=== PATIENT | male | born 1970 | race Caucasian/White ===

== ENCOUNTER → 2016-10-03 | Outpatient (CLI) | payer OTHER ==
--- NOTE | 2016-10-03 18:09 | Diagnostic Imaging Report ---
INDICATION: Back pain. EXAMINATION: Thoracic spine. FINDINGS: AP and lateral views of the thoracic spine show normal vertebral body height and alignment. Disc spaces are well maintained. IMPRESSION: Negative thoracic spine. Dictated by: Dictated on workstation # [id number]
== END ==
LOC: RAD 15:57
PROVIDERS: ATTEND Family Medicine
DX: S29.019A Strain of muscle and tendon of unspecified wall of thorax, initial encounter (principal); X58.XXXA Exposure to other specified factors, initial encounter; Y99.8 Other external cause status
CPT/HCPCS: 72070

== ENCOUNTER 2018-09-06 13:33 | Emergency (ER) | payer OTHER ==
[~2018-09-06] VITALS: Ht 193 cm; Wt 117.9 kg
--- NOTE | 2018-09-06 13:37 | NUR ---
ATTEMPTED TO CALL PATIENT BACK TO ROOM AND PATIENT WAS NOT IN WAITING ROOM.
[2018-09-06] MEDS ORDERED: LISI10TA2 PO (13:55)
[2018-09-06 14:30] LABS: BASOPHILS # (AUTO) 0.1 10^3/uL (0.0-0.1); BASOPHILS % (AUTO) 0 % (0-10); EOSINOPHILS # (AUTO) 0.2 10^3/uL (0.0-0.3); EOSINOPHILS % (AUTO) 1 % (0-10); HEMATOCRIT 40 % (40-54); LYMPHOCYTES # (AUTO) 1.9 X 10^3 (1.0-4.0); LYMPHOCYTES % (AUTO) 14 % (12-44); MEAN CORPUSCULAR HEMOGLOBIN 32 PG (25-34); MEAN CORPUSCULAR HGB CONC 35 G/DL (32-36); MEAN CORPUSCULAR VOLUME 92 FL (80-99); MEAN PLATELET VOLUME 10.5 FL (7.4-10.4); MONOCYTES # (AUTO) 0.7 X 10^3 (0.0-1.0); MONOCYTES % (AUTO) 5 % (0-12); NEUTROPHILS # (AUTO) 11.2 X 10^3 (1.8-7.8); NEUTROPHILS % (AUTO) 80 % (42-75); PLATELET COUNT 305 10^3/uL (130-400); RED CELL DISTRIBUTION WIDTH 12.6 % (10.0-14.5)
[2018-09-06] MEDS ORDERED: RECEIVED CONTRAST 20 ML VIAL IV SCH (14:30)
[2018-09-06] MEDS ORDERED: NS 100 ML (IVPB) BAG IV ONE (14:30)
[2018-09-06] MEDS ORDERED: IOHEXOL 350 MG/ML 100 ML (OMNIPAQUE 350) VIAL IV ONE (14:30)
[2018-09-06 14:47] LABS: ALANINE AMINOTRANSFERASE 28 U/L (0-55); ALBUMIN 4.6 GM/DL (3.2-4.5); ALKALINE PHOSPHATASE 58 U/L (40-136); AMYLASE 61 U/L (25-125); BILIRUBIN,TOTAL 0.3 MG/DL (0.1-1.0); BUN/CREATININE RATIO 10; CALCIUM 10.1 MG/DL (8.5-10.1); CARBON DIOXIDE 23 MMOL/L (21-32); CHLORIDE 102 MMOL/L (98-107); CREATININE SERUM 0.94 MG/DL (0.60-1.30); GFR ESTIMATED > 60; GLUCOSE 129 MG/DL (70-105); LIPASE 48 U/L (8-78); POTASSIUM 3.9 MMOL/L (3.6-5.0); SODIUM 136 MMOL/L (135-145)
[2018-09-06 15:06] LABS: BAND NEUTROPHILS 2 %; BASOPHILS % (MANUAL) 0 %; EOSINOPHILS % (MANUAL) 3 %; LYMPHOCYTES % (MANUAL) 10 %; MONOCYTES % (MANUAL) 3 %; NEUTROPHILS % (MANUAL) 82 %; RBC MORPH NORMAL
--- NOTE | 2018-09-06 15:30 | NUR ---
PATIENT VOIDED AND URINE COLLECTED BY ALL [facility].
--- NOTE | 2018-09-06 15:32 | ED Abdominal Pain ---
General Chief Complaint: Abdominal/GI Problems Stated Complaint: ABD PAIN Nursing Triage Note: PATIENT AMBULATORY TO ER WITH COMPLAINT OF LEFT LOWER QUADRANT PAIN SINCE THURSDAY. PATIENT ALSO COMPLAINS OF DIARRHEA SINCE THURSDAY. PATIENT DESCRIBES THE PAIN A CRAMPING PAIN. HE HAS A HISTORY OF DIVERTICULITIS IN THE PAST. Sepsis Screen: No Definite Risk Source of Information: Patient Exam Limitations: No Limitations History of Present Illness Date Seen by Provider: Sep 06, 2018 Time Seen by Provider: 14:20 Initial Comments 48-year-old male who presents to the emergency room with complaints of left lower abdominal pain, cramping, and diarrhea that started Thursday 2 days ago. He denies vomiting, blood in stools, or fevers. States that he has history of diverticulitis in the past. Timing/Duration: 1-2 Days Severity/Quality: Cramping Location: LLQ, Periumbilical Radiation: No Radiation Associated Symptoms: No Fever/Chills, No Nausea/Vomiting Allergies and Home Medications Allergies Coded Allergies: No Known Drug Allergies (Unverified , 09/06/18) Home Medications Amoxicillin/Potassium Clav 1 Each Tablet, 1 EACH PO BID Prescribed by: MIGUEL GASTON on 09/06/18 1603 Hydrocodone Bit/Acetaminophen 1 Tab Tab, 1 EACH PO Q4-6HR PRN for PAIN-MODERATE Prescribed by: MIGUEL GASTON on 09/06/18 1603 Lisinopril 10 Mg Tablet, 10 MG PO DAILY, (Reported) Patient Home Medication List Home Medication List Reviewed: Yes Review of Systems Review of Systems Constitutional: see HPI; No chills, No fever Gastrointestinal: See HPI, Abdominal Pain, Diarrhea All Other Systems Reviewed Negative Unless Noted: Yes Past Lcsdyit-Xrccsv-Yuungm Hx Past Med/Social Hx: Reviewed Nursing Past Med/Soc Hx Patient Social History Alcohol Use: Occasionally Uses Alcohol Beverage of Choice: Beer Recreational Drug Use: No Smoking Status: Former Smoker Type Used: Cigars Former Smoker, Quit: Sep 26, 2018 Recent Foreign Travel: No Contact w/Someone Who Travel: No Recent Infectious Disease Expo: No Recent Hopitalizations: No Physical Abuse: No Sexual Abuse: No Mistreated: No Fear: No Seasonal Allergies Seasonal Allergies: No Past Medical History Surgeries: Yes (COLONOSCOPY) Respiratory: No Cardiac: Yes Hypertension Neurological: No Genitourinary: No Gastrointestinal: Yes Diverticulosis Musculoskeletal: No Endocrine: No HEENT: No Cancer: No Psychosocial: No Integumentary: No Blood Disorders: No Family Medical History Reviewed Nursing Family Hx Physical Exam Vital Signs Vital Signs - First Documented 09/06/18 09/06/18 13:39 17:12 Temp 98.1 Pulse 110 Resp 16 B/P (MAP) 132/92 (105) Pulse Ox 96 O2 Delivery Room Air Capillary Refill : Less Than 3 Seconds Height/Weight/BMI Height: 6'4.00" Weight: 260lbs. oz. 117.586110dd; BMI Method:Stated General Appearance: WD/WN, no apparent distress Respiratory: chest non-tender, lungs clear, normal breath sounds, no respiratory distress, no accessory muscle use Cardiovascular: normal peripheral pulses, regular rate, rhythm, no edema, no gallop, no JVD, no murmur Gastrointestinal: normal bowel sounds (hyperactive), soft, no organomegaly, no pulsatile mass, tenderness (left lower quadrant tenderness) Extremities: normal capillary refill Neurologic/Psychiatric: alert, normal mood/affect, oriented x 3 Skin: normal color, warm/dry Progress/Results/Core Measures Results/Orders Lab Results Laboratory Tests Test 09/06/18 14:07 09/06/18 15:27 Range/Units White Blood Count 14.0 H 4.3-11.0 10^3/uL Red Blood Count 4.38 4.35-5.85 10^6/uL Hemoglobin 14.0 13.3-17.7 G/DL Hematocrit 40 40-54 % Mean Corpuscular Volume 92 80-99 FL Mean Corpuscular Hemoglobin 32 25-34 PG Mean Corpuscular Hemoglobin Concent 35 32-36 G/DL Red Cell Distribution Width 12.6 10.0-14.5 % Platelet Count 305 130-400 10^3/uL Mean Platelet Volume 10.5 H 7.4-10.4 FL Neutrophils (%) (Auto) 80 H 42-75 % Lymphocytes (%) (Auto) 14 12-44 % Monocytes (%) (Auto) 5 0-12 % Eosinophils (%) (Auto) 1 0-10 % Basophils (%) (Auto) 0 0-10 % Neutrophils # (Auto) 11.2 H 1.8-7.8 X 10^3 Lymphocytes # (Auto) 1.9 1.0-4.0 X 10^3 Monocytes # (Auto) 0.7 0.0-1.0 X 10^3 Eosinophils # (Auto) 0.2 0.0-0.3 10^3/uL Basophils # (Auto) 0.1 0.0-0.1 10^3/uL Neutrophils % (Manual) 82 % Lymphocytes % (Manual) 10 % Monocytes % (Manual) 3 % Eosinophils % (Manual) 3 % Basophils % (Manual) 0 % Band Neutrophils 2 % Blood Morphology Comment NORMAL Sodium Level 136 135-145 MMOL/L Potassium Level 3.9 3.6-5.0 MMOL/L Chloride Level 102 98-107 MMOL/L Carbon Dioxide Level 23 21-32 MMOL/L Anion Gap 11 5-14 MMOL/L Blood Urea Nitrogen 9 7-18 MG/DL Creatinine 0.94 0.60-1.30 MG/DL Estimat Glomerular Filtration Rate > 60 BUN/Creatinine Ratio 10 Glucose Level 129 H 70-105 MG/DL Calcium Level 10.1 8.5-10.1 MG/DL Corrected Calcium 8.5-10.1 MG/DL Total Bilirubin 0.3 0.1-1.0 MG/DL Aspartate Amino Transf (AST/SGOT) 24 5-34 U/L Alanine Aminotransferase (ALT/SGPT) 28 0-55 U/L Alkaline Phosphatase 58 40-136 U/L Total Protein 8.0 6.4-8.2 GM/DL Albumin 4.6 H 3.2-4.5 GM/DL Amylase Level 61 25-125 U/L Lipase 48 8-78 U/L Urine Color YELLOW Urine Clarity CLEAR Urine pH 5 5-9 Urine Specific [place] 1.015 L 1.016-1.022 Urine Protein NEGATIVE NEGATIVE Urine Glucose (UA) NEGATIVE NEGATIVE Urine Ketones NEGATIVE NEGATIVE Urine Nitrite NEGATIVE NEGATIVE Urine Bilirubin NEGATIVE NEGATIVE Urine Urobilinogen NORMAL NORMAL MG/DL Urine Leukocyte Esterase NEGATIVE NEGATIVE Urine RBC (Auto) NEGATIVE NEGATIVE Urine RBC NONE /HPF Urine WBC RARE /HPF Urine Squamous Epithelial Cells NONE /HPF Urine Crystals NONE /LPF Urine Bacteria NEGATIVE /HPF Urine Casts NONE /LPF Urine Mucus NEGATIVE /LPF Urine Culture Indicated NO My Orders Orders - MIGUEL GASTON Comprehensive Metabolic Panel (09/06/18 14:24) Lipase (09/06/18 14:24) Amylase (09/06/18 14:24) Ua Culture If Indicated (09/06/18 14:24) Saline Lock/Iv-Start (09/06/18 14:24) Cbc With Automated Diff (09/06/18 14:24) Ct Abdomen/Pelvis W (09/06/18 14:24) Iohexol Injection (Omnipaque 350 Mg/Ml 1 (09/06/18 14:30) Received Contrast (Contrast Received) (09/06/18 14:30) Ns (Ivpb) (Sodium Chloride 0.9% Ivpb Bag (09/06/18 14:30) Manual Differential (09/06/18 14:07) Fentanyl Injection (Sublimaze Injection (09/06/18 16:00) Ns Iv 1000 Ml (Sodium Chloride 0.9%) (09/06/18 16:00) Medications Given in ED Current Medications Medications Dose Ordered Sig/Nagi Route Start Time Stop Time Status Last Admin Dose Admin Fentanyl Citrate 50 mcg ONCE ONCE IVP 09/06/18 16:00 09/06/18 16:01 DC 09/06/18 16:27 50 MCG Iohexol 100 ml ONCE ONCE IV 09/06/18 14:30 09/06/18 14:35 DC 09/06/18 15:08 100 ML Sodium Chloride 100 ml ONCE ONCE IV 09/06/18 14:30 09/06/18 14:35 DC 09/06/18 15:08 80 ML Vital Signs/I&O 09/06/18 09/06/18 13:39 17:12 Temp 98.1 98.5 Pulse 110 89 Resp 16 18 B/P (MAP) 132/92 (105) 122/83 (96) Pulse Ox 96 O2 Delivery Room Air Room Air Blood Pressure Mean: 105 Progress Progress Note : Time: 15:49 Progress Note I have seen and evaluated the patient. I have informed him of his laboratory and imaging studies. He reports that with his diverticulitis in the past they have prescribed him Augmentin and has worked well. We will try this as an outpatient treatment. He agrees with plan of care, plans for discharge, strict return precautions were given. Diagnostic Imaging Diagonstic Imaging: CT Plain Films/CT/US/NM/MRI: abdomen, pelvis Comments NAME: [facility]GER[facility]D [facility] REC#: [id number] PT STATUS: REG ER : 1970 PHYSICIAN: MIGUEL GASTON ADMIT DATE: 09/06/18/ER Signed Date of Exam: 09/06/18 CT ABDOMEN/PELVIS W PROCEDURE: CT abdomen and pelvis with contrast. TECHNIQUE: Multiple contiguous axial images were obtained through the abdomen and pelvis after administration of intravenous contrast. INDICATION: Left lower quadrant pain and diarrhea. No prior studies are available for comparison. Lung bases are clear. Liver demonstrates generalized low density consistent with hepatic steatosis. No discrete liver mass is seen. Gallbladder is contracted. No biliary duct dilatation is identified. The pancreas and spleen are unremarkable. No adrenal mass is identified. A right kidney does contain a 4 cm low-density mass in the mid region suggestive of a cyst. Left kidney is unremarkable. Aorta is non-aneurysmal. Multiple shotty lymph nodes in the central retroperitoneum are noted, nonspecific. No definite mesenteric lymphadenopathy is identified. Imaging to the pelvis does show a long segment of significant wall thickening involving the sigmoid colon which does contain diverticuli. Surrounding inflammatory stranding is present and features are consistent with acute sigmoid diverticulitis. No abscess formation or bowel obstruction is identified. No free fluid is seen. Bladder is unremarkable. IMPRESSION: 1. Hepatic steatosis. 2. Findings consistent with acute sigmoid diverticulitis without evidence of abscess formation or bowel obstruction. Dictated by: Dictated on workstation # [id number] Dict: 09/06/18 1528 Trans: 09/06/18 1552 Interpreted by: SARINA LAW MD Electronically signed by: SARINA LAW MD 09/06/18 1552 Reviewed: Reviewed by Me Departure Impression Primary Impression: Sigmoid diverticulitis Disposition: 01 HOME, SELF-CARE Condition: Stable/Unchanged Departure-Patient Inst. Decision time for Depature: 15:49 Referrals: NO,LOCAL PHYSICIAN (PCP/Family) Primary Care Physician Patient Instructions: Diverticulitis (DC), LOCAL PHYSICIAN LIST Add. Discharge Instructions: Take medications as directed. Follow-up with a primary care provider in 2-3 days for a recheck. Clear liquid diet for the next 4-5 days and advance as tolerated. Return back to the emergency room for worsening symptoms, pain, fevers, or any other concerns as needed. All discharge instructions reviewed with patient and/or family. Voiced understanding. Scripts Amoxicillin/Potassium Clav (Augmentin 875-125 Tablet) 1 Each Tablet 1 EACH PO BID for 7 Days, #14 TAB Prov: MIGUEL GASTON 09/06/18 Hydrocodone Bit/Acetaminophen (Hydrocodone/Acetaminophen 5/325mg Tablet) 1 Tab Tab 1 EACH PO Q4-6HR PRN for PAIN-MODERATE MDD 10, #14 TAB Prov: MIGUEL GASTON 09/06/18 Work/School Note: Work Release Form Date Seen in the Emergency Department: Sep 06, 2018 Return to Work: Sep 09, 2018 Restrictions: No Restrictions MIGUEL GASTON Sep 06, 2018 15:32
--- NOTE | 2018-09-06 15:35 | Diagnostic Imaging Report ---
PROCEDURE: CT abdomen and pelvis with contrast. TECHNIQUE: Multiple contiguous axial images were obtained through the abdomen and pelvis after administration of intravenous contrast. INDICATION: Left lower quadrant pain and diarrhea. No prior studies are available for comparison. Lung bases are clear. Liver demonstrates generalized low density consistent with hepatic steatosis. No discrete liver mass is seen. Gallbladder is contracted. No biliary duct dilatation is identified. The pancreas and spleen are unremarkable. No adrenal mass is identified. A right kidney does contain a 4 cm low-density mass in the mid region suggestive of a cyst. Left kidney is unremarkable. Aorta is non-aneurysmal. Multiple shotty lymph nodes in the central retroperitoneum are noted, nonspecific. No definite mesenteric lymphadenopathy is identified. Imaging to the pelvis does show a long segment of significant wall thickening involving the sigmoid colon which does contain diverticuli. Surrounding inflammatory stranding is present and features are consistent with acute sigmoid diverticulitis. No abscess formation or bowel obstruction is identified. No free fluid is seen. Bladder is unremarkable. IMPRESSION: 1. Hepatic steatosis. 2. Findings consistent with acute sigmoid diverticulitis without evidence of abscess formation or bowel obstruction. Dictated by: Dictated on workstation # [id number]
[2018-09-06 15:45] LABS: BILIRUBIN,URINE NEGATIVE (NEGATIVE); CLARITY,URINE CLEAR; COLOR,URINE YELLOW; GLUCOSE, URINE (UA) NEGATIVE (NEGATIVE); KETONES,URINE NEGATIVE (NEGATIVE); LEUKOCYTE ESTERASE ,URINE NEGATIVE (NEGATIVE); NITRITE,URINE NEGATIVE (NEGATIVE); PH,URINE 5 (5-9); PROTEIN,URINE NEGATIVE (NEGATIVE); UROBILINOGEN,URINE NORMAL (NORMAL)
[2018-09-06] MEDS ORDERED: NS IV 1000 ML 1,000 ML IV SCH (16:00)
[2018-09-06] MEDS ORDERED: fentaNYL INJECTION 100 MCG/2 ML AMP IVP ONE (16:00)
[2018-09-06 16:03] LABS: BACTERIA,URINE NEGATIVE /HPF; WBC,URINE RARE /HPF
[2018-09-06] MEDS ORDERED: AMOX-358 PO (16:03)
[2018-09-06] MEDS ORDERED: ACHD5005 PO (16:03)
[2018-09-06 17:12] VITALS: BP 122/83
--- NOTE | 2018-09-06 17:14 | NUR ---
PATIENT CONSCIOUS, ALERT AND ORIENTED X 4 AT TIME OF DISCHARGE. VITAL SIGNS STABLE. PATIENT DENIES ANY PAIN. PATIENT GIVEN PRESCRIPTIONS FOR HYDROCODONE AND AUGMENTIN.
== END 2018-09-06 17:15 | disposition home or self-care (01) ==
LOC: EDUNIT# 13:33 → ER 13:33
DX: K57.32 Diverticulitis of large intestine without perforation or abscess without bleeding (principal); I10 Essential (primary) hypertension; Z87.19 Personal history of other diseases of the digestive system; Z87.891 Personal history of nicotine dependence
CPT/HCPCS: 36415; 74177; 80053; 81000; 82150; 83690; 85007; 85027

== ENCOUNTER → 2018-12-09 | Outpatient (REF) ==
[~2018-12-09] MED LIST: ACHD5005 PO; AMOX-358 PO; LISI10TA2 PO
--- NOTE | 2018-12-09 11:06 | Diagnostic Imaging Report ---
KNEE, RIGHT, 3 VIEWS COMPARISON: None available. INDICATION: Twisted right knee. TECHNIQUE: Non-weight bearing AP, oblique, and lateral views of the right knee. FINDINGS: No fracture or traumatic malalignment. The joint spaces are well maintained. Small knee joint effusion. IMPRESSION: 1. No acute osseous abnormality. 2. Small knee joint effusion could relate to internal derangement. Dictated by: Dictated on workstation # [id number]
== END | disposition home or self-care (01) ==
LOC: OCC 10:35
PROVIDERS: ATTEND Family Medicine
CPT/HCPCS: 73562

== ENCOUNTER 2020-01-06 22:35 | Emergency (ER) | payer OTHER ==
[~2020-01-06] VITALS: Ht 190.5 cm; Wt 108.9 kg
[2020-01-06] MEDS ORDERED: LACTATED RINGERS 1,000 ML IV ONE (23:14)
[2020-01-06] MEDS ORDERED: IBUPROFEN 800 MG (MOTRIN) TAB PO STA (23:14)
--- NOTE | 2020-01-06 23:14 | ED General ---
General Chief Complaint: General Problems/Pain Stated Complaint: FEVER/SOB/COUGH/POSS COVID EXPOSURE Nursing Triage Note: PT AMBULATES TO [facility] WITH C/O CP, SOA, FEVER, COUGH, MALAISE, FATIGUE, ET BODY ACHES. PT REPORTS S/S BEGAN ON THIS DAY. PT REPORTS TO HAVE TAKEN 1000MG TYLENOL AT APPROX 1500 ON THIS DAY D/T FEVER. PT REPORTS POSSIBLE EXPOSURE TO COVID-19. PT REPORTS INTERMITTENT L CHEST WALL DISCOMFORT. A&OX4. Nursing Sepsis Screen: Possible Severe Sepsis Risk Source of Information: Patient History of Present Illness Date Seen by Provider: Jan 06, 2020 Time Seen by Provider: 22:55 Initial Comments PT ARRIVES VIA POV STATES HE THINKS HE HAS BEEN EXPOSED TO COVID-19 AT WORK. 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 STATES HE BEGAN FEELING SICK TODAY CHECKED TEMP AT HOME THIS EVENING AND WAS 99.5. HAS BEEN AT WORK ALL DAY, THEN WENT TO BACK TO [facility] JUST TO CHECK HIS TEMP WITH THEIR THERMOMETER AND WAS 103 AND 104. STATES HE TOOK 2 TYLENOL AT 1600 TODAY C/O PRODUCTIVE COUGH--STATES HE HAS A CHRONIC SMOKER'S COUGH, BUT HAS GOTTEN WORSE THE LAST COUPLE OF DAYS, BUT HAS NOT BEEN PRODUCTIVE FOR THE LAST 3-4 DAYS C/O SHORTNESS OF BREATH C/O MILD LEFT UPPER CHEST DISCOMFORT C/O MID AND UPPER BACK PAIN C/O FATIGUE C/O BODY ACHES STATES HIS FINGERS FEEL TINGLY NO NAUSEA, VOMITING. BUT DID HAVE A LITTLE DIARRHEA TODAY NO ABDOMINAL PAIN HAS BEEN EATING AND DRINKING NORMALLY NO SORE THROAT NO CHANGES IN TASTE OR SMELL PT DENIES HISTORY OF RESPIRATORY PROBLEMS HAS HISTORY OF HTN AND HYPERLIPIDEMIA PCP: [facility], DR. PANG Allergies and Home Medications Allergies Coded Allergies: No Known Drug Allergies (Unverified , 09/06/18) Home Medications Amoxicillin/Potassium Clav 1 Each Tablet, 1 EACH PO BID Prescribed by: MIGUEL GASTON on 09/06/18 1603 Azithromycin 500 Mg Tablet, 500 MG PO DAILY Prescribed by: SKYLER JOINER on 01/07/2028 Cefdinir 300 Mg Capsule, 300 MG PO BID Prescribed by: SKYLER JOINER on 01/07/2028 Hydrocodone Bit/Acetaminophen 1 Tab Tab, 1 EACH PO Q4-6HR PRN for PAIN-MODERATE Prescribed by: MIGUEL GASTON on 09/06/18 1603 Lisinopril 10 Mg Tablet, 10 MG PO DAILY, (Reported) Patient Home Medication List Home Medication List Reviewed: Yes Review of Systems Review of Systems Constitutional: see HPI, fever, malaise, weakness EENTM: no symptoms reported; No nose congestion, No throat pain Respiratory: see HPI, cough, phlegm, short of breath Cardiovascular: see HPI, chest pain; No edema, No palpitations, No syncope, No vascular heart diseas Gastrointestinal: see HPI; No abdominal pain; diarrhea; No loss of appetite, No nausea, No vomiting Genitourinary: no symptoms reported Musculoskeletal: see HPI (BODY ACHES, ), back pain Skin: no symptoms reported Psychiatric/Neurological: See HPI; Denies Headache; Paresthesia, Tingling; Denies Weakness Hematologic/Lymphatic: No Symptoms Reported Immunological/Allergic: no symptoms reported Past Xnwcbuq-Mxocnl-Nhbugf Hx Past Med/Social Hx: Reviewed and Corrections made Patient Social History Alcohol Use: Occasionally Uses Number of Drinks Today: 1 Alcohol Beverage of Choice: Beer Recreational Drug Use: No Smoking Status: Current Everyday Smoker (SMOKES 1/2 PPD, ALSO CHEWS TOBACCO) Type Used: Cigars, Smokeless Tobacco Recent Foreign Travel: No Contact w/Someone Who Travel: No Recent Infectious Disease Expo: No Recent Hopitalizations: No Seasonal Allergies Seasonal Allergies: No Past Medical History Surgeries: Yes (COLONOSCOPY) Respiratory: No Cardiac: Yes High Cholesterol, Hypertension Neurological: No Genitourinary: No Gastrointestinal: Yes Diverticulosis Musculoskeletal: No Endocrine: No HEENT: No Cancer: No Psychosocial: No Integumentary: No Blood Disorders: No Physical Exam Vital Signs Vital Signs - First Documented Capillary Refill : Less Than 3 Seconds Height, Weight, BMI Height: 6'4.00" Weight: 260lbs. oz. 117.090668ir; 30.00 BMI Method:Stated General Appearance: No Apparent Distress, WD/WN, Other (TALKS AT LENGTH WITHOUT DIFFICULTY. DOES NOT APPEAR ILL. ) HEENT: PERRL/EOMI, TMs Normal, Normal ENT Inspection, Pharynx Normal Neck: Full Range of Motion, Normal Inspection, Non Tender, Supple Respiratory: No Accessory Muscle Use, No Respiratory Distress, Rales (FAINT RALES IN BASES) Cardiovascular: No Edema, No JVD, No Murmur, Normal Peripheral Pulses, Tachycardia (120) Gastrointestinal: Normal Bowel Sounds, No Organomegaly, No Pulsatile Mass, Non Tender, Soft Back: Normal Inspection, No Vertebral Tenderness Extremity: Normal Capillary Refill, Normal Inspection, Normal Range of Motion, Non Tender, No Calf Tenderness, No Pedal Edema Neurologic/Psychiatric: Alert, Oriented x3, No Motor/Sensory Deficits, Normal Mood/Affect Skin: Normal Color, Warm/Dry; No Rash Focused Exam Lactate Level 01/06/20 23:02: Lactic Acid Level 1.31 Lactic Acid Level Progress/Results/Core Measures Suspected Sepsis Recent Fever Within 48 Hours: Yes Infection Criteria Present: Suspected New Infection New/Unexplained Altered Menta: No Sepsis Screen: Possible Severe Sepsis Risk SIRS Temperature: Pulse: 123 Respiratory Rate: 22 Laboratory Tests 01/06/20 23:02: White Blood Count 17.7H Blood Pressure 119 /71 Mean: 87 01/06/20 23:02: Lactic Acid Level 1.31 Laboratory Tests 01/06/20 23:02: Creatinine 1.03, INR Comment 1.1, Platelet Count 277, Total Bilirubin 0.5 Results/Orders Lab Results My Orders Medications Given in ED Vital Signs/I&O Capillary Refill : Less Than 3 Seconds Blood Pressure Mean: 87 Progress Note : Progress Note PT SEEN IN COVID UNIT. PPE WORN AT ALL TIMES COVID-19 TESTING PERFORMED PT TALKS NON-STOP AT LENGTH THROUGHOUT STAY NO DYSPNEA, O2 SATS REMAINED IN UPPER 90'S ON ROOM AIR NO SIGNIFICANT COUGH NOTED PT WAS GIVEN MOTRIN AND IV FLUIDS AND STATES HE FEELS ALOT BETTER. ECG Initial ECG Impression Date: Jan 06, 2020 Initial ECG Impression Time: 23:02 Initial ECG Rate: 116 Initial ECG Rhythm: S.Tach Diagnostic Imaging Comments CXR--NO ACUTE PROCESS, PENDING RADIOLOGIST REVIEW Reviewed: Reviewed by Me Departure Impression Primary Impression: COVID P.U.I. Disposition: 01 HOME, SELF-CARE Condition: Stable Departure-Patient Inst. Referrals: LUC PANG MD Patient Instructions: Coronavirus Disease 2019 (COVID-19) (DC) Add. Discharge Instructions: LOTS OF CLEAR LIQUIDS TYLENOL 1 GRAM /MOTRIN 800 MG 4 TIMES A DAY FOR PAIN OR FEVER CONTINUE YOUR REGULAR MEDICATIONS PRESCRIBED YOURSELF AND ALL HOUSEHOLD MEMBERS AND CLOSE CONTACTS NEED TO QUARANTINE FOR THE NEXT 2 WEEKS--NO ONE ENTERS OR LEAVES THE HOUSE FOR 2 WEEKS FOLLOW UP WITH [facility] IN 3-4 DAYS IF NO BETTER, RETURN TO ER IF WORSE All discharge instructions reviewed with patient and/or family. Voiced understanding. Scripts Azithromycin (Zithromax) 500 Mg Tablet 500 MG PO DAILY, #5 TAB Prov: SKYLER JOINER DO 01/07/20 Cefdinir (Cefdinir) 300 Mg Capsule 300 MG PO BID, #20 CAP Prov: SKYLER JOINER DO 01/07/20 Work/School Note: Work Release Form Date Seen in the Emergency Department: Jan 06, 2020 Return to Work: Jan 20, 2020 SKYLER JOINER DO Jan 06, 2020 23:14
[2020-01-06] MEDS ORDERED: IBUPROFEN TABLET 200 MG TAB PO ONE (23:30)
[2020-01-06 23:32] LABS: BASOPHILS % (AUTO) 0 % (0-10); EOSINOPHILS % (AUTO) 0 % (0-10); HEMATOCRIT 39 % (40-54); HEMOGLOBIN 13.6 G/DL (13.3-17.7); LYMPHOCYTES # (AUTO) 0.5 X 10^3 (1.0-4.0); LYMPHOCYTES % (AUTO) 3 % (12-44); MEAN CORPUSCULAR HEMOGLOBIN 32 PG (25-34); MEAN CORPUSCULAR HGB CONC 35 G/DL (32-36); MEAN CORPUSCULAR VOLUME 94 FL (80-99); MEAN PLATELET VOLUME 10.5 FL (7.4-10.4); MONOCYTES # (AUTO) 0.5 X 10^3 (0.0-1.0); MONOCYTES % (AUTO) 3 % (0-12); NEUTROPHILS # (AUTO) 16.7 X 10^3 (1.8-7.8); NEUTROPHILS % (AUTO) 94 % (42-75); PLATELET COUNT 277 10^3/uL (130-400); RED CELL DISTRIBUTION WIDTH 12.6 % (10.0-14.5); WHITE BLOOD COUNT 17.7 10^3/uL (4.3-11.0)
[2020-01-06 23:40] LABS: ALBUMIN 4.5 GM/DL (3.2-4.5); CHLORIDE 101 MMOL/L (98-107); POTASSIUM 4.1 MMOL/L (3.6-5.0); SODIUM 135 MMOL/L (135-145)
[2020-01-06 23:41] LABS: CALCIUM 9.7 MG/DL (8.5-10.1)
[2020-01-06 23:42] LABS: GLUCOSE 115 MG/DL (70-105); TOTAL PROTEIN 7.6 GM/DL (6.4-8.2)
[2020-01-06 23:43] LABS: CARBON DIOXIDE 23 MMOL/L (21-32)
[2020-01-06 23:44] LABS: BAND NEUTROPHILS 8 %; BILIRUBIN,TOTAL 0.5 MG/DL (0.1-1.0); FIBRIN DEGRADATION PRODUCTS 0.39 UG/ML (0.00-0.49); INR 1.1 (0.8-1.4); LYMPHOCYTES % (MANUAL) 6 %; MONOCYTES % (MANUAL) 1 %; NEUTROPHILS % (MANUAL) 85 %; PROTHROMBIN TIME PATIENT 14.5 SEC (12.2-14.7); RBC MORPH NORMAL
[2020-01-06 23:46] LABS: ALKALINE PHOSPHATASE 57 U/L (40-136); CREATININE SERUM 1.03 MG/DL (0.60-1.30); GFR ESTIMATED > 60
[2020-01-06 23:47] LABS: BUN/CREATININE RATIO 14
[2020-01-06 23:48] LABS: MAGNESIUM 1.6 MG/DL (1.6-2.4)
[2020-01-06 23:49] LABS: ALANINE AMINOTRANSFERASE 28 U/L (0-55)
[2020-01-07] MEDS ORDERED: cefTRIAXone FOR IV USE 1,000 MG in WATER (STERILE) FOR INJECTION 10 ML IV ONE ×2
[2020-01-07] MEDS ORDERED: AZITHROMYCIN 250 MG TAB (ZITHROMAX) PO ONE
[2020-01-07 00:04] LABS: ERYTHROCYTE SEDIMENTATION RATE 9 MM/HR (0-15)
[2020-01-07] MEDS ORDERED: AZIT500T PO (00:29)
[2020-01-07] MEDS ORDERED: CEFD300C3 PO (00:29)
[2020-01-07 00:40] VITALS: BP 117/73
--- NOTE | 2020-01-07 07:23 | Diagnostic Imaging Report ---
INDICATION: Cough and fever COMPARISON: No previous study is available for comparison at this time. FINDINGS: Heart size and pulmonary vasculature are within normal limits, and the lungs are clear, bilaterally. IMPRESSION: Unremarkable chest. Dictated by: Dictated on workstation # [id number]
== END 2020-01-07 00:40 | disposition home or self-care (01) ==
LOC: EDUNIT# 22:35 → ER 22:36
DX: R50.9 Fever, unspecified (principal); R06.02 Shortness of breath; R05 Cough; Z20.828 Contact with and (suspected) exposure to other viral communicable diseases; E78.00 Pure hypercholesterolemia, unspecified; I10 Essential (primary) hypertension; Z87.19 Personal history of other diseases of the digestive system
CPT/HCPCS: 71045; 80053; 83605; 83615; 83735; 83880; 84145; 84484; 85007; 85027; 85379; 85610; 85652; 85730; 86141; 87040; 93005; 93041; 96361; 96374; 99284; U0002; 36415; 87635

== ENCOUNTER → 2021-04-15 | Outpatient (CLI) | payer OTHER ==
[~2021-04-15] VITALS: Ht 190.5 cm; Wt 116.0 kg
[~2021-04-15] MED LIST changes: +ACETAMINOPHEN 500 MG TAB (TYLENOL) PO PRN; +AZIT500T PO; +CASIRIVIMAB/IMDEVIMAB 1,200 MG in NS (IVPB) 250 ML IV ONE; +CEFD300C3 PO; +EPINEPHrine INJECTION 1 MG/ML AMP IM PRN; -LISI10TA2 PO; +LISI10TA25 PO; +ONDA4TAB11 PO; +ONDANSETRON 4 MG/2 ML (SDV) Z0FRAN IV PRN; +diphenhydrAMINE 50 MG/ML INJ (BENADRYL) IV PRN
[2021-04-15 11:55] VITALS: BP 137/81
[2021-04-15 13:50] VITALS: BP 131/85
== END ==
LOC: INFUSION 12:02
PROVIDERS: ATTEND Nurse Practitioner Family
DX: U07.1 COVID-19 (principal)

== ENCOUNTER 2021-04-16 13:28 | Emergency (ER) | payer OTHER ==
[~2021-04-16] VITALS: Ht 190 cm; Wt 115.0 kg
[~2021-04-16 13:28] MED LIST changes: -ACETAMINOPHEN 500 MG TAB (TYLENOL) PO PRN; -CASIRIVIMAB/IMDEVIMAB 1,200 MG in NS (IVPB) 250 ML IV ONE; -EPINEPHrine INJECTION 1 MG/ML AMP IM PRN; -ONDA4TAB11 PO; -ONDANSETRON 4 MG/2 ML (SDV) Z0FRAN IV PRN; -diphenhydrAMINE 50 MG/ML INJ (BENADRYL) IV PRN
[2021-04-16] MEDS ORDERED: NS IV 1000 ML 1,000 ML ONE (13:54)
--- NOTE | 2021-04-16 13:55 | ED General ---
General Stated Complaint: COVID +, LIGHTHEADED,WEAK Source of Information: Patient Exam Limitations: No Limitations History of Present Illness Date Seen by Provider: Apr 16, 2021 Time Seen by Provider: 13:42 Initial Comments Patient is a 51-year-old male who presents to the emergency room today with a chief complaint of nausea, generalized fatigue, malaise/weakness. Patient is 9 days into a diagnosis of coronavirus illness. He had his Regeneron infusion yesterday. States he has been doing pretty well up until today without any cough, shortness of breath, significant pain. He has had no leg swelling or c long term cramping. Patient states he has been drinking plenty of fluids but states most of this is coffee and Dr. Pepper. He denies any pain significant fevers, he states the highest is about 99. His last dose of ibuprofen was early this morning he states he took some Advil. Girlfriend is at home with Covid pneumonia. She is on oxygen. He denies any problems with urination states he has had a little diarrhea, nonblack nonbloody. Takes medications for hypertension and hypercholesterolemia. All other review of systems reviewed and negative except as stated. Timing/Duration: 24 Hours Severity: Moderate Associated Systoms: Malaise, Nausea/Vomiting Allergies and Home Medications Allergies Coded Allergies: No Known Drug Allergies (Unverified , 09/06/18) Patient Home Medication List Home Medication List Reviewed: Yes Amoxicillin/Potassium Clav (Augmentin 875-125 Tablet) 1 Each Tablet, 1 EACH PO BID Prescribed by: MIGUEL GASTON on 09/06/18 160 Azithromycin (Zithromax) 500 Mg Tablet, 500 MG PO DAILY Prescribed by: SKYLER JOINER on 01/07/20 0029 Cefdinir (Cefdinir) 300 Mg Capsule, 300 MG PO BID Prescribed by: SKYLER JOINER on 01/07/20 0029 Hydrocodone Bit/Acetaminophen (Lortab 5 Mg Tablet) 1 Tab Tab, 1 EACH PO Q4-6HR PRN for PAIN-MODERATE Prescribed by: MIGUEL GASTON on 09/06/18 1603 Lisinopril (Lisinopril) 10 Mg Tablet, 10 MG PO DAILY, (Reported) Entered as Reported by: ALL ANGELO on 09/06/18 1355 Review of Systems Review of Systems Constitutional: see HPI EENTM: no symptoms reported Respiratory: cough (very mild) Cardiovascular: no symptoms reported Gastrointestinal: diarrhea, nausea Genitourinary: no symptoms reported Musculoskeletal: no symptoms reported Skin: no symptoms reported Psychiatric/Neurological: No Symptoms Reported All Other Systems Reviewed Negative Unless Noted: Yes Past Srevxke-Xdcjgp-Dhwgbb Hx Seasonal Allergies Seasonal Allergies: No Past Medical History Surgeries: Yes (COLONOSCOPY) Respiratory: No Cardiac: Yes High Cholesterol, Hypertension Neurological: No Genitourinary: No Gastrointestinal: Yes Diverticulosis Musculoskeletal: No Endocrine: No HEENT: No Cancer: No Psychosocial: No Integumentary: No Blood Disorders: No Physical Exam Vital Signs Capillary Refill : Height, Weight, BMI Height: 6'4.00" Weight: 260lbs. oz. 117.238039oz; 30.00 BMI Method:Stated General Appearance: No Apparent Distress, WD/WN Eyes: Bilateral Eye Normal Inspection, Bilateral Eye PERRL, Bilateral Eye EOMI HEENT: PERRL/EOMI Neck: Normal Inspection Respiratory: Lungs Clear, Normal Breath Sounds, No Accessory Muscle Use, No Respiratory Distress, Other (Pox 98% on Room air) Cardiovascular: Regular Rate, Rhythm, Normal Peripheral Pulses Gastrointestinal: Non Tender, Soft Extremity: Normal Capillary Refill, Normal Inspection, Normal Range of Motion, Non Tender, No Calf Tenderness Neurologic/Psychiatric: Alert, Oriented x3, No Motor/Sensory Deficits, Normal Mood/Affect, crosscutter II-XII Norm as Tested Skin: Normal Color, Warm/Dry Progress/Results/Core Measures Suspected Sepsis SIRS Temperature: Pulse: Respiratory Rate: Laboratory Tests 04/16/21 14:30: White Blood Count 3.3L Blood Pressure / Mean: Laboratory Tests 04/16/21 14:30: Creatinine 0.88, Platelet Count 222 Results/Orders Lab Results Laboratory Tests Test 04/16/21 14:30 Range/Units White Blood Count 3.3 L 4.3-11.0 10^3/uL Red Blood Count 4.05 L 4.30-5.52 10^6/uL Hemoglobin 13.0 L 13.3-17.7 g/dL Hematocrit 39 L 40-54 % Mean Corpuscular Volume 95 80-99 fL Mean Corpuscular Hemoglobin 32 25-34 pg Mean Corpuscular Hemoglobin Concent 34 32-36 g/dL Red Cell Distribution Width 12.4 10.0-14.5 % Platelet Count 222 130-400 10^3/uL Mean Platelet Volume 10.1 9.0-12.2 fL Immature Granulocyte % (Auto) 0 % Neutrophils (%) (Auto) 50 42-75 % Lymphocytes (%) (Auto) 39 12-44 % Monocytes (%) (Auto) 10 0-12 % Eosinophils (%) (Auto) 1 0-10 % Basophils (%) (Auto) 0 0-10 % Neutrophils # (Auto) 1.7 L 1.8-7.8 10^3/uL Lymphocytes # (Auto) 1.3 1.0-4.0 10^3/uL Monocytes # (Auto) 0.3 0.0-1.0 10^3/uL Eosinophils # (Auto) 0.0 0.0-0.3 10^3/uL Basophils # (Auto) 0.0 0.0-0.1 10^3/uL Immature Granulocyte # (Auto) 0.0 0.0-0.1 10^3/uL Sodium Level 138 135-145 MMOL/L Potassium Level 4.1 3.6-5.0 MMOL/L Chloride Level 103 98-107 MMOL/L Carbon Dioxide Level 24 21-32 MMOL/L Anion Gap 11 5-14 MMOL/L Blood Urea Nitrogen 11 7-18 MG/DL Creatinine 0.88 0.60-1.30 MG/DL Estimat Glomerular Filtration Rate 92 BUN/Creatinine Ratio 13 Glucose Level 99 70-105 MG/DL Calcium Level 8.7 8.5-10.1 MG/DL My Orders Orders - REYNALDO GONZALEZ MD Ed Iv/Invasive Line Start (04/16/21 13:55) Cbc With Automated Diff (04/16/21 13:55) Basic Metabolic Panel (04/16/21 13:55) Ns Iv 1000 Ml (Sodium Chloride 0.9%) (04/16/21 13:54) Medications Given in ED Current Medications Medications Dose Ordered Sig/Nagi Route Start Time Stop Time Status Last Admin Dose Admin Sodium Chloride 1,000 ml @ [facility]-MED ONCE .ROUTE 04/16/21 13:54 04/16/21 13:56 DC 04/16/21 14:00 1,000 MLS/HR Vital Signs/I&O Capillary Refill : Progress Note : Time: 15:57 Progress Note Patient reexamined, feels pretty good. Labs reviewed, he has a mildly depressed total white blood cell count otherwise not anemic, normal electrolytes and renal function. He is continued to have stable vital signs throughout his stay. Would like a little nausea medicine for home. Return precautions given. Patient verbalized understanding. All questions were sought and answered. Patient is stable for discharge. Departure Impression Primary Impression: COVID-19 Disposition: 01 HOME, SELF-CARE Condition: Stable Departure-Patient Inst. Decision time for Depature: 14:08 Referrals: [facility]LOCAL PHYSICIAN (PCP) Primary Care Physician Patient Instructions: COVID-19 ED Add. Discharge Instructions: Drink plenty of fluids to stay well-hydrated, water and Gatorade are better than coffee and Dr. Mei. Nausea medications have been sent to your pharmacy. Continue to take ibuprofen or Tylenol every 6 hours as needed for fever/body aches. Return to the emergency room if he has any new, concerning or emergent complaints. Scripts Ondansetron (Ondansetron Odt) 4 Mg Tab.rapdis 4 MG PO Q8H PRN for nausea, #15 TAB Prov: REYNALDO GONZALEZ MD 04/16/21 REYNALDO GONZALEZ MD Apr 16, 2021 13:55
[2021-04-16 14:53] LABS: BASOPHILS % (AUTO) 0 % (0-10); EOSINOPHILS % (AUTO) 1 % (0-10); HEMATOCRIT 39 % (40-54); LYMPHOCYTES # (AUTO) 1.3 10^3/uL (1.0-4.0); LYMPHOCYTES % (AUTO) 39 % (12-44); MEAN CORPUSCULAR HEMOGLOBIN 32 pg (25-34); MEAN CORPUSCULAR HGB CONC 34 g/dL (32-36); MEAN CORPUSCULAR VOLUME 95 fL (80-99); MEAN PLATELET VOLUME 10.1 fL (9.0-12.2); MONOCYTES # (AUTO) 0.3 10^3/uL (0.0-1.0); MONOCYTES % (AUTO) 10 % (0-12); NEUTROPHILS # (AUTO) 1.7 10^3/uL (1.8-7.8); NEUTROPHILS % (AUTO) 50 % (42-75); PLATELET COUNT 222 10^3/uL (130-400); WHITE BLOOD COUNT 3.3 10^3/uL (4.3-11.0)
[2021-04-16 14:59] LABS: POTASSIUM 4.1 MMOL/L (3.6-5.0)
[2021-04-16 15:00] LABS: CALCIUM 8.7 MG/DL (8.5-10.1)
[2021-04-16 15:05] LABS: CREATININE SERUM 0.88 MG/DL (0.60-1.30)
[2021-04-16] MEDS ORDERED: ONDA4TAB11 PO (15:58)
[2021-04-16 16:04] VITALS: BP 126/84
== END 2021-04-16 16:04 | disposition home or self-care (01) ==
LOC: EDUNIT# 13:28 → ER 13:29
DX: U07.1 COVID-19 (principal); D72.819 Decreased white blood cell count, unspecified; I10 Essential (primary) hypertension; E78.00 Pure hypercholesterolemia, unspecified; Z73.0 Burn-out; Z79.899 Other long term (current) drug therapy
CPT/HCPCS: 36415; 80048; 85025

== ENCOUNTER 2021-05-13 09:42 | Emergency (ER) | payer OTHER ==
[~2021-05-13] VITALS: Ht 190 cm; Wt 115.0 kg
[~2021-05-13 09:42] MED LIST changes: +ONDA4TAB11 PO
[2021-05-13 09:50] VITALS: BP 135/87
--- NOTE | 2021-05-13 10:05 | ED Cough/URI ---
General Chief Complaint: Cough/Cold/Flu Symptoms Stated Complaint: COUGHING UP MUCAS Source: patient Exam Limitations: no limitations History of Present Illness Date Seen by Provider: May 13, 2021 Time Seen by Provider: 09:50 Initial Comments Patient is a 51-year-old male who presents to the emergency department today with a chief complaint of cough, congestion, green mucus. Patient states he has had symptoms for about a week. Went to [facility] last week and was told it was a "viral syndrome". He states his symptoms have continued to worsen. Early on he had low-grade fever. He complains of a mild sore throat more on the left than the right. No nausea, vomiting, diarrhea. He recently got over Covid last month. He has a history of hypertension. He does smoke cigarettes. Patient is counseled on cessation. States he has been taking an [id number] "Synex" decongestant (sudafed and phenylephrine). Has not been taking Tylenol or ibuprofen. Appetite is okay. No swelling or cramping in his legs. All other review of systems reviewed and negative except as stated. Timing/Duration: week, getting worse Severity/Quality: moderate, productive cough ("green" mucous) Modifying Factors: Worse With Lying Down Associated Symptoms: cough, nasal congestion, nasal drainage Allergies and Home Medications Allergies Coded Allergies: No Known Drug Allergies (Unverified , 09/06/18) Patient Home Medication List Home Medication List Reviewed: Yes Amoxicillin/Potassium Clav (Augmentin 875-125 Tablet) 1 Each Tablet, 1 EACH PO BID Prescribed by: MIGUEL GASTON on 09/06/18 160 Azithromycin (Zithromax) 500 Mg Tablet, 500 MG PO DAILY Prescribed by: SKYLER JOINER on 01/07/20 0029 Cefdinir (Cefdinir) 300 Mg Capsule, 300 MG PO BID Prescribed by: SKYLER JOINER on 01/07/20 0029 Hydrocodone Bit/Acetaminophen (Lortab 5 Mg Tablet) 1 Tab Tab, 1 EACH PO Q4-6HR PRN for PAIN-MODERATE Prescribed by: MIGUEL GASTON on 09/06/18 1603 Lisinopril (Lisinopril) 10 Mg Tablet, 10 MG PO DAILY, (Reported) Entered as Reported by: ALL ANGELO on 09/06/18 1355 Ondansetron (Ondansetron Odt) 4 Mg Tab.rapdis, 4 MG PO Q8H PRN for nausea Prescribed by: ERYNALDO GONZALEZ on 04/16/21 1798 Review of Systems Review of Systems Constitutional: see HPI EENTM: nose congestion Respiratory: cough, phlegm Cardiovascular: no symptoms reported Gastrointestinal: no symptoms reported Genitourinary: no symptoms reported Musculoskeletal: no symptoms reported Skin: no symptoms reported All Other Systems Reviewed Negative Unless Noted: Yes Past Mizamxo-Uiqrgn-Ccjazx Hx Patient Social History Tobacco Use?: Yes Tobacco type used: Cigarettes Smoking Status: Current Everyday Smoker Substance use?: No Alcohol Use?: Unable to obtain Pt feels they are or have been: No Seasonal Allergies Seasonal Allergies: No Past Medical History Surgeries: Yes (COLONOSCOPY) Respiratory: No Cardiac: Yes High Cholesterol, Hypertension Neurological: No Genitourinary: No Gastrointestinal: Yes Diverticulosis Musculoskeletal: No Endocrine: No HEENT: No Cancer: No Psychosocial: No Integumentary: No Blood Disorders: No Physical Exam Capillary Refill : Height: 6'4.00" Weight: 260lbs. oz. 117.118583rt; 31.00 BMI Method:Stated General Appearance: WD/WN, no apparent distress Eyes: Bilateral Eye Normal Inspection, Bilateral Eye PERRL, Bilateral Eye EOMI HEENT: PERRL/EOMI, TMs normal, pharynx normal, other (nasal mucosal congestion) Neck: non-tender, full range of motion, supple Respiratory: lungs clear, normal breath sounds, no respiratory distress, no accessory muscle use Cardiovascular: regular rate, rhythm Gastrointestinal: non tender, soft Extremities: normal inspection, no pedal edema, no calf tenderness Neurologic/Psychiatric: alert, normal mood/affect, oriented x 3 Skin: normal color, warm/dry Progress/Results/Core Measures Suspected Sepsis SIRS Temperature: Pulse: Respiratory Rate: Blood Pressure / Mean: Results/Orders Vital Signs/I&O Capillary Refill : Counseling-Symptomatic: 3-10 Minutes Follow-up with PCP to: Discuss Further Options Departure Impression Primary Impression: Acute bronchitis Qualified Codes: J20.9 - Acute bronchitis, unspecified Disposition: 01 HOME, SELF-CARE Condition: Stable Departure-Patient Inst. Decision time for Depature: 10:02 Referrals: LUC PANG MD (PCP/Family) Primary Care Physician Patient Instructions: Acute Bronchitis, Adult (DC) Add. Discharge Instructions: Take the antibiotics twice daily for 10 days as directed. You should really try and stop smoking. Use an over the counter Mucinex to help loosen congestion and mucous/ thin secretions. The Sinex decongestant you have been taking contains tylenol, therefore, you cannot take extra tylenol - you can use over the counter ibuprofen for body aches and sore throat. Return to the Emergency Department for any new, concerning or emergent symptoms. Scripts Doxycycline Hyclate (Doxycycline Hyclate) 100 Mg Tablet 100 MG PO BID, #20 TAB 0 Refills Prov: REYNALDO GONZALEZ MD 05/13/21 Copy Copies To 1: LUC PANG MD, KATHRYN M MD May 13, 2021 10:05
[2021-05-13] MEDS ORDERED: DOXY100T2 PO (10:06)
== END 2021-05-13 10:12 | disposition home or self-care (01) ==
LOC: EDUNIT# 09:42 → ER 09:47
DX: J20.9 Acute bronchitis, unspecified (principal); I10 Essential (primary) hypertension; F17.210 Nicotine dependence, cigarettes, uncomplicated; Z79.899 Other long term (current) drug therapy
CPT/HCPCS: 99281